=== PATIENT | female | born 1975 | race Caucasian/White ===

== ENCOUNTER 2017-06-23 23:29 | Observation (INO) ==
[2017-06-23] MEDS ORDERED: 0.9 % Sodium Chloride 500 ML IVC ONE (23:36)
--- NOTE | 2017-06-23 23:36 | Emergency Department Note ---
Disposition Clinical Impression: Chest pain, Hypokalemia, Atypical chest pain Disposition: Admitted As Inpatient Condition: Good Time of Disposition: 00:51 (I spoke with Dr. Ortiz) Chest Pain HPI - General Chief Complaint: ED Chest Pain Stated Complaint: Left chest, arm, back pain onset 90 minutes Time Seen by Provider: 06/23/17 23:35 Source: patient, EMS Mode of arrival: EMS Limitations: other (Patient appears to be honored and for some some substance) Vital Signs Reviewed: Yes Nursing Notes Reviewed: Yes - History of Present Illness HPI Narrative: Patient presents to the ER via EMS with complaint of substernal chest pain that started acutely while she was sitting doing nothing. Patient complains of a sharp stabbing pain in the mid chest. Patient appears to be under the influence of some unknown substance. Patient appears to have a difficult time keeping her eyes open. She denies doing any drugs, although it appears that she is on the day influence of something. 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 Onset: during rest, other Pain Location: left chest Severity: mild Quality: sharp, other (Stabbing pain, hurts when patient takes a deep breath) Improves with: movement, remaining still Worsens with: inspiration, movement Context: other (Patient reports that she has had a cough for several weeks and she has been tried on several different antibiotics) - Related Data On Oral Contraceptives: No Home Medications Medication Instructions Recorded Confirmed Topiramate [Topamax] 50 mg PO BID 04/06/16 06/24/17 hydroCHLOROthiazide 12.5 mg PO DAILY 06/26/16 06/24/17 [Hydrochlorothiazide] lamoTRIgine [Lamictal] 200 mg PO HS 08/07/16 06/24/17 Maximum D 3 1 gm PO QWEEK 01/11/17 06/24/17 B12/Levomefolate Calcium/B-6 1 each PO ONCE 06/24/17 06/24/17 [Foltx Tablet] Ketorolac [Toradol] 10 mg PO Q6HR 06/24/17 06/24/17 Previous Rx's Medication Instructions Recorded Omeprazole [PriLOSEC] 40 mg PO DAILY #30 capsule. 08/07/16 clonazePAM [Clonazepam] 0.5 mg PO Q12H PRN #8 tab.rapdis 01/11/17 Allergies Allergy/AdvReac Type Severity Reaction Status Date / Time aspirin [ASA] AdvReac Hives Verified 05/10/17 10:33 Iodinated Contrast- Oral and AdvReac Hives Verified 05/10/17 10:33 IV Dye [Iodinated Contrast Media - Oral and] All systems ED: reviewed and negative except as stated. 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 - Social History Smoking Status: Current every day smoker Alcohol use: Reports: none Drug use: Reports: none Physical Exam - General Limitations: no limitations - Head Head exam: atraumatic, normocephalic, normal inspection - Eye Eye exam: Present: normal appearance, PERRL, EOMI - ENT ENT exam: normal exam, normal oropharynx, mucous membranes moist - Neck Neck exam: Present: normal inspection, full ROM, trachea midline - Chest Chest inspection: Present: normal inspection, symmetric chest wall rise - Respiratory Respiratory exam: Present: normal lung sounds bilaterally - Cardiovascular Cardiovascular exam: Present: tachycardia - Abdominal Exam Abdominal exam: Present: soft, Non-Tender. Absent: tenderness, distention, guarding, rebound, rigidity - Extremities Exam Extremities exam: Present: normal inspection - Expanded Lower Extremity Exam Hip/Pelvis exam: Present: normal inspection, full ROM Upper leg exam: Present: normal inspection, full ROM - Back Exam Back exam: Present: normal inspection, full ROM. Absent: tenderness - Neurological Exam Neurological exam: Present: alert - Psychiatric Psychiatric exam: Present: flat affect - Skin Skin exam: Present: warm Course Vital Signs Temperature 97.2 F L 06/23/17 23:36 Pulse Rate 98 06/23/17 23:36 Respiratory Rate 16 06/23/17 23:36 Blood Pressure 131/83 06/23/17 23:36 O2 Sat by Pulse Oximetry 98 06/23/17 23:36 Temperature 97.2 F L 06/23/17 23:36 Pulse Rate 98 06/23/17 23:36 Respiratory Rate 16 06/23/17 23:36 Blood Pressure 131/83 06/23/17 23:36 O2 Sat by Pulse Oximetry 98 06/23/17 23:36 Oxygen Delivery Oxygen Delivery Room Air Chest Pain - Medical Records Medical records reviewed: Yes I reviewed the patient's medical records. - Lab Data Lab results reviewed: Yes I reviewed the patient's lab results. Result diagrams: 06/23/17 23:42 06/23/17 21:45 Lab Results 06/23/17 06/23/17 06/23/17 Range/Units 21:45 23:42 23:42 WBC 13.7 H (4.3-11.1) K/mcL RBC 4.44 (3.82-4.97) M/mcL Hgb 13.9 (11.5-15.4) g/dL Hct 39.7 (35.3-44.9) % MCV 89.4 (83.0-100.0) fL MCH 31.3 (28.0-33.3) pg MCHC 35.0 (31.6-35.5) g/dL RDW 13.4 (11.5-14.5) % Plt Count 380 (140-400) K/mcL MPV 9.8 (9.4-12.4) fL Immature Gran % 0.7 (0-4) % Seg Neutrophils % 55.2 % Lymphocytes % 36.4 % Monocytes % 6.6 % Eosinophils % 0.6 % Basophils % 0.5 % Neutrophils # 7.6 (1.6-8.9) K/mcL Lymphocytes # 5.0 H (0.6-4.6) K/mcL Monocytes # 0.9 (0.0-1.3) K/mcL Eosinophils # 0.1 (0.0-0.6) K/mcL Basophils # 0.1 (0.0-0.2) K/mcL PT 10.6 (9.4-12.1) Seconds INR 1.0 APTT 27.1 (26.0-36.0) Seconds Sodium 139 (136-145) mEq/L Potassium 2.4 L* (3.5-5.1) mEq/L Chloride 105 (98-107) mEq/L Carbon Dioxide 25 (23-29) mEq/L BUN 5 L (6-20) mg/dL Creatinine 0.69 (0.60-1.20) mg/dL Est GFR ( Amer) > 60 (> 60) Est GFR (Non-Af Amer) > 60 (> 60) BUN/Creatinine Ratio 7 (6-26) Glucose 98 (70-105) mg/dL Calculated Osmolality 285 (280-300) Calcium 8.6 (8.6-10.3) mg/dL Troponin I < 0.03 (< 0.04) ng/mL Urine Color (Yellow) Urine Clarity (Clear) Urine pH (5.0-8.0) pH Units Ur Specific [place] (1.010-1.025) Urine Protein (Neg-Trace) mg/dL Urine Glucose (UA) (Normal) mg/dL Urine Ketones (Negative) mg/dL Urine Blood (Negative) Urine Nitrite (Negative) Urine Bilirubin (Negative) Urine Urobilinogen (Normal) mg/dL Ur Leukocyte Esterase (Negative) Urine Microscopic WBC (0-3) per hpf Ur Squamous Epith Cells (None-Few) per lpf Ur Culture Indicated? (NO) Urine Opiates Screen (Zbiqow=631) ng/mL Ur Oxycodone Screen (Cutoff= 100) ng/mL Ur Barbiturates Screen (Ojsglq=447) ng/mL Ur Phencyclidine Scrn (Cutoff=25) ng/mL Ur Amphetamines Screen (Uckpyo=1722) ng/mL U Benzodiazepines Scrn (Mokbqj=035) ng/mL Urine Cocaine Screen (Cutoff= 300) ng/mL U Marijuana (THC) Screen (Cutoff = 50) ng/mL 06/23/17 06/23/17 Range/Units 23:55 23:55 WBC (4.3-11.1) K/mcL RBC (3.82-4.97) M/mcL Hgb (11.5-15.4) g/dL Hct (35.3-44.9) % MCV (83.0-100.0) fL MCH (28.0-33.3) pg MCHC (31.6-35.5) g/dL RDW (11.5-14.5) % Plt Count (140-400) K/mcL MPV (9.4-12.4) fL Immature Gran % (0-4) % Seg Neutrophils % % Lymphocytes % % Monocytes % % Eosinophils % % Basophils % % Neutrophils # (1.6-8.9) K/mcL Lymphocytes # (0.6-4.6) K/mcL Monocytes # (0.0-1.3) K/mcL Eosinophils # (0.0-0.6) K/mcL Basophils # (0.0-0.2) K/mcL PT (9.4-12.1) Seconds INR APTT (26.0-36.0) Seconds Sodium (136-145) mEq/L Potassium (3.5-5.1) mEq/L Chloride (98-107) mEq/L Carbon Dioxide (23-29) mEq/L BUN (6-20) mg/dL Creatinine (0.60-1.20) mg/dL Est GFR ( Amer) (> 60) Est GFR (Non-Af Amer) (> 60) BUN/Creatinine Ratio (6-26) Glucose (70-105) mg/dL Calculated Osmolality (280-300) Calcium (8.6-10.3) mg/dL Troponin I (< 0.04) ng/mL Urine Color Yellow (Yellow) Urine Clarity Clear (Clear) Urine pH 7.0 (5.0-8.0) pH Units Ur Specific [place] 1.010 (1.010-1.025) Urine Protein Negative (Neg-Trace) mg/dL Urine Glucose (UA) Normal (Normal) mg/dL Urine Ketones Negative (Negative) mg/dL Urine Blood Negative (Negative) Urine Nitrite Negative (Negative) Urine Bilirubin Negative (Negative) Urine Urobilinogen Normal (Normal) mg/dL Ur Leukocyte Esterase Trace H (Negative) Urine Microscopic WBC 3-5 H (0-3) per hpf Ur Squamous Epith Cells Few (None-Few) per lpf Ur Culture Indicated? YES A (NO) Urine Opiates Screen Negative (Hmltod=021) ng/mL Ur Oxycodone Screen Negative (Cutoff= 100) ng/mL Ur Barbiturates Screen Negative (Umdiud=291) ng/mL Ur Phencyclidine Scrn Negative (Cutoff=25) ng/mL Ur Amphetamines Screen Negative (Zzlgeb=6057) ng/mL U Benzodiazepines Scrn Negative (Ejwfqf=603) ng/mL Urine Cocaine Screen Negative (Cutoff= 300) ng/mL U Marijuana (THC) Screen Negative (Cutoff = 50) ng/mL - Radiology Data Radiology results reviewed: Yes I reviewed the patient's radiology results. - EKG Data EKG attestation: Yes I reviewed and interpreted this EKG. EKG results narrative: EKG shows a sinus tachycardic rhythm. EKG shows normal: sinus rhythm Rate: tachycardia
[2017-06-23] MEDS ORDERED: *HR* LORazepam 2 MG/ML VIAL IVP ONE (23:37)
[2017-06-23 23:48] LABS: Basophils # 0.1 K/mcL (0.0-0.2); Basophils % 0.5 %; Eosinophils # 0.1 K/mcL (0.0-0.6); Eosinophils % 0.6 %; Hematocrit 39.7 % (35.3-44.9); Hemoglobin 13.9 g/dL (11.5-15.4); Immature Granulocytes % 0.7 % (0-4); Lymphocytes % 36.4 %; Mean Corpuscular Hemoglobin 31.3 pg (28.0-33.3); Mean Corpuscular Volume 89.4 fL (83.0-100.0); Mean Platelet Volume 9.8 fL (9.4-12.4); Monocytes # 0.9 K/mcL (0.0-1.3); Monocytes % 6.6 %; Neutrophils # 7.6 K/mcL (1.6-8.9); Platelet Count 380 K/mcL (140-400); Red Blood Count 4.44 M/mcL (3.82-4.97); Red Cell Distribution Width 13.4 % (11.5-14.5); Segmented Neutrophils % 55.2 %
[2017-06-23 23:58] LABS: Bilirubin,Urine Negative (Negative); Blood,Urine Negative (Negative); Clarity,Urine Clear (Clear); Color,Urine Yellow (Yellow); Glucose,Urine (UA) Normal (Normal); Ketones,Urine Negative (Negative); Leukocyte Esterase,Urine Trace (Negative); Nitrite,Urine Negative (Negative); Protein,Urine Negative (Neg-Trace); Urobilinogen,Urine Normal (Normal)
[2017-06-24 00:05] LABS: Squamous Epithelial Cell,Urine Few per lpf (None-Few)
[2017-06-24 00:10] LABS: Amphetamine Screen,Urine Negative ng/mL (Cutoff=1000); Barbiturate Screen,Urine Negative ng/mL (Cutoff=200); Benzodiazepines Screen,Urine Negative ng/mL (Cutoff=200); Cannabinoid Screen,Urine Negative ng/mL (Cutoff = 50); Cocaine Screen,Urine Negative ng/mL (Cutoff= 300); Opiate Screen,Urine Negative ng/mL (Cutoff=300); Phencyclidine Screen,Urine Negative ng/mL (Cutoff=25)
[2017-06-24 00:16] LABS: BUN/Creatinine Ratio 7 (6-26); Blood Urea Nitrogen 5 mg/dL (6-20); Calcium 8.6 mg/dL (8.6-10.3); Carbon Dioxide 25 mEq/L (23-29); Chloride 105 mEq/L (98-107); Glucose 98 mg/dL (70-105); Osmolality,Calculated 285 (280-300); Potassium 2.4 mEq/L (3.5-5.1); Sodium 139 mEq/L (136-145); Troponin I < 0.03 ng/mL (< 0.04); eGFR For African Americans > 60 (> 60); eGFR For Non-African Americans > 60 (> 60)
[2017-06-24 00:16] LABS: Prothrombin Time 10.6 Seconds (9.4-12.1)
[2017-06-24 00:19] LABS: Activated Partial Thrombo Time 27.1 Seconds (26.0-36.0)
[2017-06-24] MEDS ORDERED: 0.9 % Sodium Chloride 1,000 ML IVC SCH (00:45)
[2017-06-24 00:54] LABS: D-Dimer < 215 ng/mLFEU (0-500)
[2017-06-24] MEDS ORDERED: Naloxone 0.4 MG/ML INJ IVP PRN (01:40)
[2017-06-24] MEDS ORDERED: MAXIMUM D PO SCH (01:40)
[2017-06-24] MEDS: clonazePAM 0.5 MG TABLET PO PRN ×2 (02:00→13:53)
[2017-06-24] MEDS: 0.9 % Sodium Chloride 1,000 ML IVC SCH ×2 (02:01→08:23)
[2017-06-24] MEDS: FOLTX PO SCH (03:29)
[2017-06-24 06:49] LABS: Alanine Aminotransferase 7 Units/L (7-52); Albumin/Globulin Ratio 1.4 (1.1-2.2); Alkaline Phosphatase 65 Units/L (34-104); Aspartate Amino Transferase 6 Units/L (13-39); BUN/Creatinine Ratio 9 (6-26); Bilirubin,Total 0.3 mg/dL (0.3-1.0); Blood Urea Nitrogen 6 mg/dL (6-20); Calcium 7.6 mg/dL (8.6-10.3); Carbon Dioxide 26 mEq/L (23-29); Chloride 111 mEq/L (98-107); Globulin 2.2 g/dL (2.4-3.5); Glucose 94 mg/dL (70-105); Osmolality,Calculated 291 (280-300); Sodium 142 mEq/L (136-145); Total Protein 5.2 g/dL (6.4-8.9); eGFR For African Americans > 60 (> 60); eGFR For Non-African Americans > 60 (> 60)
[2017-06-24] MEDS: Topiramate 25 MG TABLET PO SCH ×2 (08:21→20:34)
--- NOTE | 2017-06-24 12:29 | Internal Med History&Physical ---
Date of Encounter: 06/24/17 Time of Encounter: 11:05 Assessment and Plan (1) Chest pain Current visit: Yes Status: Acute Etiology not obvious. Repeat cardiac enzymes will be done along with d-dimer. Qualifiers: Chest pain type: unspecified Qualified Code(s): R07.9 - Chest pain, unspecified (2) Leukocytosis Current visit: Yes Status: Acute We will order chest CT to further evaluate Qualifiers: Leukocytosis type: unspecified Qualified Code(s): D72.829 - Elevated white blood cell count, unspecified (3) Hypokalemia Current visit: Yes Status: Acute Probably secondary to HCTZ use. We will give supplemental potassium and recheck labs. (4) Weight loss Current visit: Yes Status: Acute We will check TSH and order CT of chest abdomen and pelvis. Internal Medicine - H&P: HPI Chief complaint: Chest discomfort, hypokalemia Admitted From: Emergency Dept Plans for Post Hospital Care: Home History of present illness: Ms. Lovett is a 42 year old female who came to emergency room stating she had developed discomfort in her chest approximately 10 PM while at leisure that she describes as a pressure sensation in her mid chest and a "stabbing" sensation in her left shoulder area that seemed to radiate posteriorly around the shoulder and down her left thorax area. When it did not resolve she came to emergency room. She was evaluated and admitted to [facility] floor for ongoing care needs. She denies previous similar pain. She states she does get some discomfort in her chest on exertion that is predictable but it is a different sensation. Her cardiovascular history is significant for edema and she uses HCTZ but does not take potassium supplementation. She denies hypertension PA or failure DVT or pulmonary embolus. Past Med Surg Social Fam HX - Past Medical History Medical history: COPD Psychiatric history: anxiety, depression - Past Surgical History Surgical History: , cholecystectomy, other - Social History Smoking Status: Current every day smoker Packs per day: 1 Smokeless Tobacco Status: No Alcohol use: none Drug use: none Internal Medicine - H&P: Meds Topiramate [Topamax] 50 mg PO BID 04/06/16 [History] hydroCHLOROthiazide [Hydrochlorothiazide] 12.5 mg PO DAILY 06/26/16 [History] Omeprazole [PriLOSEC] 40 mg PO DAILY #30 capsule. 08/07/16 [Rx] lamoTRIgine [Lamictal] 200 mg PO HS 08/07/16 [History] Maximum D 3 1 gm PO QWEEK 01/11/17 [History] clonazePAM [Clonazepam] 0.5 mg PO Q12H PRN #8 tab.patdis 01/11/17 [Rx] B12/Levomefolate Calcium/B-6 [Foltx Tablet] 1 each PO ONCE 06/24/17 [History] Ketorolac [Toradol] 10 mg PO Q6HR 06/24/17 [History] 3 Allergy/AdvReac Type Severity Reaction Status Date / Time aspirin [ASA] AdvReac Hives Verified 05/10/17 10:33 Iodinated Contrast- Oral and AdvReac Hives Verified 05/10/17 10:33 IV Dye [Iodinated Contrast Media - Oral and] All Systems PM: A 10-system review of systems was performed and is negative for pertinent findings except as documented above in the HPI. Review of systems: Gen.: She states her weight has decreased from 159 pounds to 132 pounds in the past 3 months, unintentionally. She denies fevers chills or night sweats. Cardiovascular: As per history of present illness Respiratory: She states she has had a cough for approximately 6 months. She has smoked since age 22 up to 2 packs per day. She states she had PFTs approximately 2004 and was told she had COPD. She does not use home oxygen. She has not been tested for sleep apnea. GI: She has had cholecystectomy but denies disorders of her liver or exocrine pancreas. She denies vomiting diarrhea melena or hematochezia. : She has had hematuria in the past. She denies kidney stones other kidney or bladder disorders Neurologic: She denies large distribution strokes or seizures. Endocrine: She denies diabetes thyroid disease or hyperlipidemia Hematology/oncology: She denies blood disorders cancers or anemia Psychiatric: She has anxiety depression and bipolar disorder [place] skeletal: She has degenerative disc disease of her back and DJD. She denies gout. - Constitutional Vitals: Temp Pulse Resp BP Pulse Ox 98.4 F 104 16 112/72 97 06/24/17 11:02 06/24/17 11:02 06/24/17 11:02 06/24/17 11:02 06/24/17 11:02 Exam: Gen.: She is awell-developed well-nourished female lying in bed who appears in no severe distress at present time HEENT: Head is atraumatic and normocephalic. Eyes: EOMI. There is no scleral icterus. Mouth: She has no visualized teeth in her maxilla. Her mandible shows teeth in poor repair. Neck: Supple and nontender. There is no thyromegaly or adenopathy noted. Heart: Regular without murmurs gallops or ectopics Lungs: No wheezes or crackles are heard. Abdomen: Soft and nontender. No masses or guarding are noted. Chest: She has nontender chest wall to palpation Extremities: There is no cyanosis edema or clubbing noted. Dorsalis pedis and posttibial pulses are 1-2 over 2 bilaterally. She has no pain on passive range of motion of her left shoulder. Neurologic: Mental status: She is talkative and a good historian. Cranial nerves: Smile is symmetric. Forehead wrinkles bilaterally. Tongue protrudes midline. EOMI. Motor: There is no pronator drift. Cerebellar: Finger to nose is intact bilaterally. Skin: Warm and dry Internal Med - H&P Results - Labs CBC & Chem 7: 06/23/17 23:42 06/24/17 05:53 Labs: BMP 06/24/17 05:53 Sodium 142 Potassium 3.0 L Chloride 111 H Carbon Dioxide 26 BUN 6 Creatinine 0.65 Glucose 94 Calcium 7.6 L Liver Function 06/24/17 Range/Units 05:53 Total Bilirubin 0.3 (0.3-1.0) mg/dL AST 6 L (13-39) Units/L ALT 7 (7-52) Units/L Alkaline Phosphatase 65 (34-104) Units/L Albumin 3.0 L (3.5-5.7) g/dL - VTE Reasons for not Prescribing Prophylaxis: Treatment not Indicated - Low risk for VTE
[2017-06-24 14:23] LABS: Thyroid Stimulating Hormone 2.164 mcIU/mL (0.340-5.600)
[2017-06-24 15:01] LABS: Magnesium 1.8 mg/dL (1.6-2.6)
[2017-06-24] MEDS ORDERED: *HR* HYDROcodone/Acet 5/325 mg TABLET PO PRN (17:29)
[2017-06-24] MEDS: Nitroglycerin 0.4 MG TAB.SUBL SL PRN ×2 (18:14→18:19)
[2017-06-24] MEDS ORDERED: lamoTRIgine 100 MG TABLET PO SCH (21:00)
[2017-06-25 06:17] LABS: Basophils # 0.1 K/mcL (0.0-0.2); Basophils % 0.4 %; Eosinophils # 0.1 K/mcL (0.0-0.6); Eosinophils % 0.7 %; Hematocrit 36.7 % (35.3-44.9); Hemoglobin 11.9 g/dL (11.5-15.4); Immature Granulocytes % 0.4 % (0-4); Lymphocytes # 4.4 K/mcL (0.6-4.6); Lymphocytes % 22.5 %; Mean Corpuscular HGB Conc 32.4 g/dL (31.6-35.5); Mean Corpuscular Hemoglobin 30.7 pg (28.0-33.3); Mean Corpuscular Volume 94.8 fL (83.0-100.0); Mean Platelet Volume 9.9 fL (9.4-12.4); Monocytes # 1.1 K/mcL (0.0-1.3); Monocytes % 5.8 %; Neutrophils # 13.8 K/mcL (1.6-8.9); Platelet Count 325 K/mcL (140-400); Red Blood Count 3.87 M/mcL (3.82-4.97); Segmented Neutrophils % 70.2 %
[2017-06-25] MEDS: FOLTX PO SCH (06:17)
[2017-06-25 06:35] LABS: BUN/Creatinine Ratio 13 (6-26); Blood Urea Nitrogen 9 mg/dL (6-20); Carbon Dioxide 26 mEq/L (23-29); Chloride 109 mEq/L (98-107); Glucose 96 mg/dL (70-105); Osmolality,Calculated 285 (280-300); Potassium 3.7 mEq/L (3.5-5.1); Sodium 138 mEq/L (136-145); eGFR For African Americans > 60 (> 60); eGFR For Non-African Americans > 60 (> 60)
[2017-06-25 06:38] VITALS: BP 105/72
[2017-06-25] MEDS: Topiramate 25 MG TABLET PO SCH (08:29)
--- NOTE | 2017-06-25 11:31 | Discharge Summary ---
Date of Encounter: 06/25/17 Time of Encounter: 11:20 - Discharge Diagnosis (1) Chest pain Priority: Primary Status: Acute Qualifiers: Chest pain type: unspecified Qualified Code(s): R07.9 - Chest pain, unspecified (2) Leukocytosis Priority: Secondary Status: Chronic Qualifiers: Leukocytosis type: unspecified Qualified Code(s): D72.829 - Elevated white blood cell count, unspecified (3) Hypokalemia Priority: Secondary Status: Resolved (4) Weight loss Priority: Secondary Status: Acute Hospital course: Ms. Lovett is a 42 year old female who came to emergency room stating she had developed discomfort in her chest approximately 10 PM while at leisure that she describes as a pressure sensation in her mid chest and a "stabbing" sensation in her left shoulder area that seemed to radiate posteriorly around the shoulder and down her left thorax area. When it did not resolve she came to emergency room. She was evaluated and admitted to [facility] for ongoing care needs. Initial orders were written by the emergency room physician. I saw her on June 24 and performed a history and physical. Repeat cardiac enzymes showed no evidence of myocardial damage. D-dimer returned within normal range. The etiology of her chest pain was not determined with certainty. Chest and abdomen/pelvis CT was done to further evaluate leukocytosis and weight loss. There were streaky densities in the lung bases possibly reflecting atelectasis. I did not think she clinically had pneumonia. There was a 2.7 cm fluid attenuating hypodensity in left adnexa area. Nonemergent pelvic ultrasound was recommended. Her PCP can order this. Supplement potassium was given and hypokalemia had resolved by day of discharge. She will continue on supplemental potassium at discharge. Review of past labs shows chronic leukocytosis. This can be monitored by her PCP. On June 25 she was stable for discharge home. She will follow with her PCP Maria Esther Lancaster CNP within 1 week. - Time Spent with Patient Total time spent providing and/or coordinating discharge services: - Discharge Medications Prescriptions: Potassium Chloride 10 meq PO DAILY #30 tab.er.prt Home Medications: Topiramate [Topamax] 50 mg PO BID 04/06/16 [History] hydroCHLOROthiazide [Hydrochlorothiazide] 12.5 mg PO DAILY 06/26/16 [History] Omeprazole [PriLOSEC] 40 mg PO DAILY #30 capsule. 08/07/16 [Rx] lamoTRIgine [Lamictal] 200 mg PO HS 08/07/16 [History] Maximum D 3 1 gm PO QWEEK 01/11/17 [History] clonazePAM [Clonazepam] 0.5 mg PO Q12H PRN #8 tab.rapdis 01/11/17 [Rx] B12/Levomefolate Calcium/B-6 [Foltx Tablet] 1 each PO ONCE 06/24/17 [History] Ketorolac [Toradol] 10 mg PO Q6HR 06/24/17 [History] Potassium Chloride 10 meq PO DAILY #30 tab.er.prt 06/25/17 [Rx] Allergies/Adverse Reactions: 3 Allergy/AdvReac Type Severity Reaction Status Date / Time aspirin [ASA] AdvReac Hives Verified 05/10/17 10:33 Iodinated Contrast- Oral and AdvReac Hives Verified 05/10/17 10:33 IV Dye [Iodinated Contrast Media - Oral and] Date of admission: 06/24/17 00:40 Primary care physician: Maria Esther Lancaster CNP - Constitutional Vitals: Temp Pulse Resp BP Pulse Ox 98.2 F 94 16 105/72 96 06/25/17 06:36 06/25/17 06:36 06/25/17 06:36 06/25/17 06:36 06/25/17 06:36 - Patient Status Disposition: Home, Self-Care Condition: Good Functional capacity at discharge: independent ambulation Overall status at discharge: patient is progressing back to baseline - Discharge Instructions Follow Up With: Maria Esther Lancaster CNP [Primary Care Provider] - - Diet and Activity Activity: resume usual activities as tolerated Diet: advance to your usual diet - VTE Reasons for not Prescribing Prophylaxis: Treatment not Indicated - Low risk for VTE
== END 2017-06-25 12:30 | disposition home or self-care (01) ==
LOC: EMEROOPIK 23:29 → INPPIK 23:29
PROVIDERS: ADMIT Internal Medicine; ATTEND Internal Medicine